=== PATIENT | male | born 1935 | race Caucasian/White ===

== ENCOUNTER 2018-02-25 11:43 | Inpatient (IN) | payer MEDICARE ==
[2018-02-25] MEDS ORDERED: cefTRIAXone\\ROCEPHIN 2 GM in Sodium Chloride 0.9% 100 ML IVPB SCH (18:00)
[2018-02-25] MEDS ORDERED: Milk Of Magnesia 30 ML UDCUP PO PRN (19:12)
[2018-02-25] MEDS: Apixaban 5 MG TAB PO SCH (20:48)
[2018-02-25] MEDS: Carvedilol 3.125 MG TAB PO SCH (20:48)
[2018-02-25] MEDS: Gabapentin 300 MG CAP PO SCH (20:48)
[2018-02-25] MEDS ORDERED: Morphine ER 15 MG TAB PO SCH (22:00)
[2018-02-25] MEDS ORDERED: Sodium Chloride 0.9% 20 ML ONE (23:36)
[2018-02-25] MEDS: Ampicillin 2 GM in Sodium Chloride 0.9% 100 ML IVPB SCH (23:39)
--- NOTE | 2018-02-26 00:26 | HP ---
DATE OF ADMISSION: 02/25/2018 REASON FOR ADMISSION: Six-week IV antibiotics. BRIEF SUMMARY OF HISTORY AND PHYSICAL: Patient is an 82-year-old white male who was recently readmit adria to [facility] on 02/17/2018 after having repeat blood cultures positive fo r Enterococcus. There, he also underwent transesophageal echocardiogram with calcified valves and th ere was a concern for endocarditis. Thus, he is being transferred to swing bed admission to continue a full course of 6 weeks of IV antibiotics to treat his recurrent bacteremia with suspected endocard itis. He will have ampicillin 2 grams IV q.4 hours as well as Rocephin 2 grams IV q.24 hours as well as weekly CBC, CRP, and comprehensive metabolic panel as recommended by Infectious Disease specialis t, Dr. Alexx Gee. PAST MEDICAL HISTORY: History of proved previous neuropathy and chronic pain on long-term morphine, history of kidney failure from previous renal stone, history of coronary artery disease with MA, hist ory of hyperlipidemia, history of hypertension, history of sleep apnea in the past but apparently has not been on CPAP device in the recent past. PAST SURGICAL HISTORY: Includes cardiac stent placement, bilateral knee surgery, bilateral shoulder surgery, and left leg surgery. MEDICATIONS: Please see recent history and physical and discharge summary from his acute hospital [facility]. SOCIAL HISTORY: Patient denies significant alcohol, smoking, or social drug use. His passed aw ay within the last 12 months. He lives alone. He has a granddaughter who helps care for him, but ap parently he has had some overall decline in status per granddaughter. Otherwise, he has been indepen dent in all activities of daily living. FAMILY HISTORY: Both mother and father with history of heart disease. ALLERGIES: No known drug allergies. REVIEW OF SYSTEMS: Presently, patient reports appetite is good. No recent fevers or chills since hi s last admission. No nausea, vomiting, or diarrhea. Appetite has been good. Bowel movements have b een normal. No sore throat. Patient denies chest pain or shortness of breath. No dysuria, hematuri a, or change in urinary frequency. No new rashes or lesions reported. He does have chronic pain, wh ich is at its baseline. Patient denies depression. PHYSICAL EXAMINATION: VITAL SIGNS: Blood pressure 162/88, respiratory rate 16, pulse was 92. Patient is afebrile. HEENT: Atraumatic, normocephalic. Extraocular movements are intact. Pupils equal, round, react to light and accommodation. GENERAL: White male lying in bed, talkative in no distress. CHEST: Clear to auscultation bilaterally. HEART: Regular rate and rhythm with grade 2/6 systolic ejection murmur. ABDOMEN: Obese, soft, nontender, nondistended, no masses palpated. EXTREMITIES: No cyanosis, clubbing, or edema. LABORATORY AND X-RAY FINDINGS: No admission labs at this time. ASSESSMENT AND PLAN: 1. Bacteremia Enterococcus suspected endocarditis per Infectious Disease, patient will have to have 6 weeks of IV antibiotics. He is currently about starting his second week. He will continue ampicil matheus 2 grams IV q.4 hours as well as Rocephin 2 grams IV q.24 hours. I have a weekly CBC, comprehensi ve metabolic panel, and CRP, which will be sent to Dr. Gee for his evaluation. 2. Debilitation and weakness. Physical therapy will be consulted. He has been mostly bedbound for several weeks. We will use [employer] hose mechanical SCDs for deep venous thrombosis prophylaxis. 3. Chronic pain. Patient will be placed on his routine home pain medications. DISPOSITION: After 6 weeks of IV antibiotics, plan is for patient to be discharged to home. May con sports medicine physician home health if he continues to be weak.
[2018-02-26] MEDS: Ampicillin 2 GM VIAL IVPB SCH ×2 (00:33→00:54)
[2018-02-26] MEDS: Ampicillin 2 GM in Sodium Chloride 0.9% 100 ML IVPB SCH ×6 (00:36→20:24)
[2018-02-26 05:22] LABS: Calc. Creatinine Clearance 120 mL/min (70-130); Estimated GFR-MDRD Greater than 90
[2018-02-26 05:53] LABS: Hemoglobin 10.1 g/dL (14.0-18.0); Platelet Count 72 thou/uL (130-400)
[2018-02-26] MEDS: Tamsulosin HCl 0.4 MG CAP PO SCH (08:48)
[2018-02-26] MEDS: Gabapentin 300 MG CAP PO SCH ×3 (08:48→20:28)
[2018-02-26] MEDS: Apixaban 5 MG TAB PO SCH ×2 (08:50→20:28)
[2018-02-26] MEDS: Carvedilol 3.125 MG TAB PO SCH ×2 (08:50→20:28)
[2018-02-26] MEDS: Folic Acid 1 MG TAB PO SCH (08:50)
[2018-02-26] MEDS: Morphine ER 15 MG TAB PO SCH ×2 (08:59→20:50)
[2018-02-26] MEDS ORDERED: Morphine ER 15 MG TAB PO SCH (09:00)
[2018-02-26] MEDS: cefTRIAXone\\ROCEPHIN 2 GM VIAL IVPB SCH ×2 (09:01→21:10)
[2018-02-26] MEDS: CARISOPRODOL 350 MG PO PRN (20:49)
[2018-02-26] MEDS: SULFASALAZINE 500MG PO SCH (20:49)
[2018-02-27] MEDS: Ampicillin 2 GM in Sodium Chloride 0.9% 100 ML IVPB SCH ×6 (00:19→20:36)
[2018-02-27] MEDS: Floranex Packet PO SCH (08:35)
[2018-02-27] MEDS: Carvedilol 3.125 MG TAB PO SCH ×2 (08:37→20:36)
[2018-02-27] MEDS: Apixaban 5 MG TAB PO SCH ×2 (08:37→20:36)
[2018-02-27] MEDS: Folic Acid 1 MG TAB PO SCH (08:38)
[2018-02-27] MEDS: cefTRIAXone\\ROCEPHIN 2 GM VIAL IVPB SCH (08:38)
[2018-02-27] MEDS: Gabapentin 300 MG CAP PO SCH ×3 (08:39→20:36)
[2018-02-27] MEDS: Tamsulosin HCl 0.4 MG CAP PO SCH (08:41)
[2018-02-27] MEDS: SULFASALAZINE 500MG PO SCH ×3 (08:42→21:21)
[2018-02-27] MEDS: CARISOPRODOL 350 MG PO PRN ×3 (08:45→21:21)
[2018-02-27] MEDS: Morphine ER 15 MG TAB PO SCH (08:47)
[2018-02-27] MEDS: cefTRIAXone\\ROCEPHIN 2 GM in Sodium Chloride 0.9% 100 ML IVPB SCH (21:20)
[2018-02-27] MEDS: MORPHINE 30 MG PO SCH (21:21)
[2018-02-28] MEDS: Ampicillin 2 GM in Sodium Chloride 0.9% 100 ML IVPB SCH ×6 (00:35→21:23)
[2018-02-28] MEDS: Floranex Packet PO SCH (09:24)
[2018-02-28] MEDS: Tamsulosin HCl 0.4 MG CAP PO SCH (09:29)
[2018-02-28] MEDS: Folic Acid 1 MG TAB PO SCH (09:33)
[2018-02-28] MEDS: cefTRIAXone\\ROCEPHIN 2 GM in Sodium Chloride 0.9% 100 ML IVPB SCH ×2 (09:33→22:04)
[2018-02-28] MEDS: Carvedilol 3.125 MG TAB PO SCH ×2 (09:33→21:19)
[2018-02-28] MEDS: Gabapentin 300 MG CAP PO SCH ×3 (09:33→21:19)
[2018-02-28] MEDS: Apixaban 5 MG TAB PO SCH ×2 (09:33→21:19)
[2018-02-28] MEDS: MORPHINE 30 MG PO SCH ×2 (09:35→21:20)
[2018-02-28] MEDS: SULFASALAZINE 500MG PO SCH ×2 (09:37→21:21)
[2018-02-28] MEDS: CARISOPRODOL 350 MG PO PRN ×2 (09:39→21:20)
[2018-02-28] MEDS: Ketoconazole 2% Cream 15 gm Tube TOP PRN (17:07)
[2018-02-28] MEDS ORDERED: Calcium Carbonate 500 MG ChewTAB PO PRN (18:57)
[2018-03-01] MEDS: Ampicillin 2 GM in Sodium Chloride 0.9% 100 ML IVPB SCH ×6 (00:54→22:21)
[2018-03-01 07:00] LABS: ALT (SGPT) 14 U/L (8-55); AST (SGOT) 24 U/L (5-34); Albumin 2.5 g/dL (3.4-4.8); Alkaline Phosphatase 89 U/L (40-150); Anion Gap 10 mmol/L (10-20); BUN (Urea Nitrogen) 11 mg/dL (8.4-25.7); Bilirubin, Total Less than 0.2 mg/dL (0.2-1.2); Calc. Creatinine Clearance 108 mL/min (70-130); Calcium 8.6 mg/dL (7.8-10.44); Carbon Dioxide 28 mmol/L (23-31); Chloride 102 mmol/L (98-107); Estimated GFR-MDRD 80; Globulin 2.8 g/dL (2.4-3.5); Glucose 95 mg/dL (83-110); Potassium 4.6 mmol/L (3.5-5.1); Protein, Total 5.3 g/dL (5.8-8.1); Sodium 135 mmol/L (136-145)
[2018-03-01] MEDS ORDERED: Furosemide 40 MG/4 ML VIAL SLOW IVP SCH (07:00)
[2018-03-01] MEDS: cefTRIAXone\\ROCEPHIN 2 GM in Sodium Chloride 0.9% 100 ML IVPB SCH ×2 (08:39→23:13)
[2018-03-01] MEDS: Floranex Packet PO SCH (08:47)
[2018-03-01] MEDS: Tamsulosin HCl 0.4 MG CAP PO SCH (08:49)
[2018-03-01] MEDS: Apixaban 5 MG TAB PO SCH ×2 (08:49→22:22)
[2018-03-01] MEDS: Folic Acid 1 MG TAB PO SCH (08:51)
[2018-03-01] MEDS: Gabapentin 300 MG CAP PO SCH ×3 (08:51→22:22)
[2018-03-01] MEDS: Carvedilol 3.125 MG TAB PO SCH ×2 (08:51→22:23)
[2018-03-01] MEDS: SULFASALAZINE 500MG PO SCH ×2 (08:59→22:23)
[2018-03-01] MEDS: MORPHINE 30 MG PO SCH ×2 (09:03→22:23)
[2018-03-01] MEDS: CARISOPRODOL 350 MG PO PRN ×2 (09:04→22:23)
[2018-03-02] MEDS: Ampicillin 2 GM in Sodium Chloride 0.9% 100 ML IVPB SCH ×6 (01:12→21:01)
[2018-03-02 05:11] LABS: Anion Gap 10 mmol/L (10-20); BUN (Urea Nitrogen) 12 mg/dL (8.4-25.7); Calc. Creatinine Clearance 120 mL/min (70-130); Calcium 8.2 mg/dL (7.8-10.44); Carbon Dioxide 28 mmol/L (23-31); Chloride 103 mmol/L (98-107); Estimated GFR-MDRD 86; Glucose 96 mg/dL (83-110); Potassium 3.9 mmol/L (3.5-5.1); Sodium 137 mmol/L (136-145)
[2018-03-02] MEDS: Ketoconazole 2% Cream 15 gm Tube TOP PRN (05:52)
[2018-03-02] MEDS ORDERED: Furosemide 40 MG/4 ML VIAL SLOW IVP SCH (07:00)
[2018-03-02] MEDS: Folic Acid 1 MG TAB PO SCH (09:35)
[2018-03-02] MEDS: Apixaban 5 MG TAB PO SCH ×2 (09:36→21:08)
[2018-03-02] MEDS: Tamsulosin HCl 0.4 MG CAP PO SCH (09:36)
[2018-03-02] MEDS: Gabapentin 300 MG CAP PO SCH ×3 (09:36→21:08)
[2018-03-02] MEDS: Carvedilol 3.125 MG TAB PO SCH ×2 (09:36→21:08)
[2018-03-02] MEDS: Floranex Packet PO SCH (09:37)
[2018-03-02] MEDS: SULFASALAZINE 500MG PO SCH ×2 (09:38→21:22)
[2018-03-02] MEDS: MORPHINE 30 MG PO SCH ×2 (09:51→21:21)
[2018-03-02] MEDS: cefTRIAXone\\ROCEPHIN 2 GM in Sodium Chloride 0.9% 100 ML IVPB SCH ×2 (09:54→21:42)
[2018-03-02] MEDS: CARISOPRODOL 350 MG PO PRN (21:25)
[2018-03-03] MEDS: Ampicillin 2 GM in Sodium Chloride 0.9% 100 ML IVPB SCH ×6 (00:50→20:11)
[2018-03-03 05:37] LABS: Hemoglobin 9.7 g/dL (14.0-18.0); Mean Corpuscular HGB CONC 31.8 g/dL (32.0-36.0); Mean Corpuscular Hemoglobin 31.8 pg (27.0-31.0); Mean Corpuscular Volume 99.7 fL (78.0-98.0); Platelet Count 86 thou/uL (130-400); RBC Distribution Width 14.5 % (11.5-14.5); Red Blood Cell (RBC) Count 3.04 mill/uL (4.70-6.10); White Blood Cell (WBC) Count 3.2 thou/uL (4.8-10.8)
[2018-03-03 05:45] LABS: ALT (SGPT) 11 U/L (8-55); AST (SGOT) 21 U/L (5-34); Albumin 2.4 g/dL (3.4-4.8); Alkaline Phosphatase 83 U/L (40-150); Anion Gap 10 mmol/L (10-20); BUN (Urea Nitrogen) 10 mg/dL (8.4-25.7); Bilirubin, Total 0.4 mg/dL (0.2-1.2); Calc. Creatinine Clearance 122 mL/min (70-130); Calcium 8.4 mg/dL (7.8-10.44); Carbon Dioxide 29 mmol/L (23-31); Chloride 102 mmol/L (98-107); Estimated GFR-MDRD 89; Globulin 2.8 g/dL (2.4-3.5); Glucose 87 mg/dL (83-110); Potassium 3.9 mmol/L (3.5-5.1); Protein, Total 5.2 g/dL (5.8-8.1); Sodium 137 mmol/L (136-145)
[2018-03-03 05:58] LABS: Anisocytosis SLIGHT = 6-15 cells (100X) (0-5/hpf); Eosinophils 6 % (0-10); Lymphocytes 58 % (21-51); MDiff Complete? YES; Neutrophil 32 % (42-75); PLT Morphology Comment Appears Decreased; Reactive Lymphocytes 3 % (0-10)
[2018-03-03] MEDS ORDERED: Furosemide 40 MG/4 ML VIAL SLOW IVP SCH (07:00)
[2018-03-03] MEDS ORDERED: Potassium Chloride 20 MEQ TAB PO SCH (07:00)
[2018-03-03] MEDS: Tamsulosin HCl 0.4 MG CAP PO SCH (09:20)
[2018-03-03] MEDS: Carvedilol 3.125 MG TAB PO SCH ×2 (09:20→20:22)
[2018-03-03] MEDS: Gabapentin 300 MG CAP PO SCH ×3 (09:20→20:22)
[2018-03-03] MEDS: Apixaban 5 MG TAB PO SCH ×2 (09:20→20:22)
[2018-03-03] MEDS: Folic Acid 1 MG TAB PO SCH (09:21)
[2018-03-03] MEDS: SULFASALAZINE 500MG PO SCH ×2 (09:21→20:28)
[2018-03-03] MEDS: Floranex Packet PO SCH (09:22)
[2018-03-03] MEDS: MORPHINE 30 MG PO SCH ×2 (09:22→20:26)
[2018-03-03] MEDS: Ketoconazole 2% Cream 15 gm Tube TOP PRN (09:31)
[2018-03-03] MEDS: cefTRIAXone\\ROCEPHIN 2 GM in Sodium Chloride 0.9% 100 ML IVPB SCH ×2 (10:33→20:26)
[2018-03-04] MEDS: Ampicillin 2 GM in Sodium Chloride 0.9% 100 ML IVPB SCH ×6 (01:02→21:13)
[2018-03-04] MEDS: Gabapentin 300 MG CAP PO SCH ×3 (09:06→20:25)
[2018-03-04] MEDS: Tamsulosin HCl 0.4 MG CAP PO SCH (09:06)
[2018-03-04] MEDS: Carvedilol 3.125 MG TAB PO SCH ×2 (09:07→20:24)
[2018-03-04] MEDS: Folic Acid 1 MG TAB PO SCH (09:07)
[2018-03-04] MEDS: Apixaban 5 MG TAB PO SCH ×2 (09:07→20:24)
[2018-03-04] MEDS: Floranex Packet PO SCH (09:08)
[2018-03-04] MEDS: cefTRIAXone\\ROCEPHIN 2 GM in Sodium Chloride 0.9% 100 ML IVPB SCH ×2 (09:09→21:55)
[2018-03-04] MEDS: SULFASALAZINE 500MG PO SCH ×2 (09:11→20:25)
[2018-03-04] MEDS: CARISOPRODOL 350 MG PO PRN ×2 (09:15→21:55)
[2018-03-04] MEDS: MORPHINE 30 MG PO SCH ×2 (09:15→20:26)
[2018-03-04] MEDS: Ketoconazole 2% Cream 15 gm Tube TOP PRN ×2 (09:17→20:24)
[2018-03-05] MEDS: Ampicillin 2 GM in Sodium Chloride 0.9% 100 ML IVPB SCH ×6 (01:41→21:10)
[2018-03-05] MEDS: Floranex Packet PO SCH (08:58)
[2018-03-05] MEDS: Apixaban 5 MG TAB PO SCH ×2 (08:59→21:11)
[2018-03-05] MEDS: Carvedilol 3.125 MG TAB PO SCH ×2 (08:59→21:11)
[2018-03-05] MEDS: Gabapentin 300 MG CAP PO SCH ×3 (08:59→21:11)
[2018-03-05] MEDS: Folic Acid 1 MG TAB PO SCH (08:59)
[2018-03-05] MEDS: Tamsulosin HCl 0.4 MG CAP PO SCH (08:59)
[2018-03-05] MEDS ORDERED: cefTRIAXone\\ROCEPHIN 1 GM VIAL SLOW IVP SCH (09:00)
[2018-03-05] MEDS ORDERED: cefTRIAXone\\ROCEPHIN 2 GM in Sodium Chloride 0.9% 100 ML IVPB SCH (09:00)
[2018-03-05] MEDS: CARISOPRODOL 350 MG PO PRN (09:29)
[2018-03-05] MEDS: MORPHINE 30 MG PO SCH ×2 (09:32→21:18)
[2018-03-05] MEDS: Torsemide 20 MG TAB PO SCH ×2 (09:47→15:05)
[2018-03-05] MEDS: cefTRIAXone\\ROCEPHIN 1 GM VIAL SLOW IVP SCH ×2 (09:49→21:52)
[2018-03-05] MEDS: SULFASALAZINE 500MG PO SCH ×2 (09:53→21:12)
[2018-03-06] MEDS: Ampicillin 2 GM in Sodium Chloride 0.9% 100 ML IVPB SCH ×7 (00:46→21:28)
[2018-03-06] MEDS: Floranex Packet PO SCH (08:59)
[2018-03-06] MEDS: cefTRIAXone\\ROCEPHIN 1 GM VIAL SLOW IVP SCH ×2 (09:00→22:23)
[2018-03-06] MEDS: SULFASALAZINE 500MG PO SCH ×2 (09:02→21:26)
[2018-03-06] MEDS: Gabapentin 300 MG CAP PO SCH ×3 (09:03→21:32)
[2018-03-06] MEDS: Folic Acid 1 MG TAB PO SCH (09:03)
[2018-03-06] MEDS: Torsemide 20 MG TAB PO SCH ×2 (09:03→13:42)
[2018-03-06] MEDS: Apixaban 5 MG TAB PO SCH ×2 (09:04→21:32)
[2018-03-06] MEDS: Tamsulosin HCl 0.4 MG CAP PO SCH (09:04)
[2018-03-06] MEDS: Carvedilol 3.125 MG TAB PO SCH ×2 (09:04→21:32)
[2018-03-06] MEDS: MORPHINE 30 MG PO SCH ×2 (09:30→21:27)
[2018-03-06] MEDS: Calcium Carbonate 500 MG ChewTAB PO PRN (13:41)
[2018-03-06] MEDS: Fluconazole 100 MG TAB PO SCH (18:03)
[2018-03-06] MEDS: Nystatin Powder 15 GM BOT TOP SCH (21:25)
[2018-03-07] MEDS: Ampicillin 2 GM in Sodium Chloride 0.9% 100 ML IVPB SCH ×5 (05:40→20:37)
[2018-03-07] MEDS: Floranex Packet PO SCH (09:37)
[2018-03-07] MEDS: Carvedilol 3.125 MG TAB PO SCH ×2 (09:40→20:38)
[2018-03-07] MEDS: Apixaban 5 MG TAB PO SCH ×2 (09:40→20:38)
[2018-03-07] MEDS: Folic Acid 1 MG TAB PO SCH (09:41)
[2018-03-07] MEDS: Tamsulosin HCl 0.4 MG CAP PO SCH (09:41)
[2018-03-07] MEDS: Gabapentin 300 MG CAP PO SCH ×3 (09:41→20:35)
[2018-03-07] MEDS: Nystatin Powder 15 GM BOT TOP SCH ×2 (09:42→20:41)
[2018-03-07] MEDS: MORPHINE 30 MG PO SCH (09:43)
[2018-03-07] MEDS: SULFASALAZINE 500MG PO SCH (09:45)
[2018-03-07] MEDS: Torsemide 20 MG TAB PO SCH ×2 (09:51→14:32)
[2018-03-07] MEDS ORDERED: Sterile Water 20 ML ONE ×2 (10:01→21:07)
[2018-03-07] MEDS: CARISOPRODOL 350 MG PO PRN (10:06)
[2018-03-07] MEDS: cefTRIAXone\\ROCEPHIN 1 GM VIAL SLOW IVP SCH ×2 (10:08→21:24)
[2018-03-07] MEDS: Fluconazole 100 MG TAB PO SCH (17:23)
[2018-03-07] MEDS: sulfaSALAzine 500 MG TAB PO SCH (20:35)
[2018-03-07] MEDS: Morphine ER 15 MG TAB PO SCH (20:38)
[2018-03-08] MEDS: Ampicillin 2 GM in Sodium Chloride 0.9% 100 ML IVPB SCH ×6 (01:15→20:14)
[2018-03-08] MEDS ORDERED: EPINEPHrine 1 MG/10 ML Abboject SYRINGE ONE (01:47)
[2018-03-08 04:40] LABS: Hemoglobin 10.2 g/dL (14.0-18.0); Platelet Count 106 thou/uL (130-400)
[2018-03-08 04:56] LABS: ALT (SGPT) Less than 7 U/L (8-55); AST (SGOT) 16 U/L (5-34); Albumin 2.6 g/dL (3.4-4.8); Alkaline Phosphatase 84 U/L (40-150); Anion Gap 13 mmol/L (10-20); BUN (Urea Nitrogen) 10 mg/dL (8.4-25.7); Bilirubin, Total 0.4 mg/dL (0.2-1.2); Calc. Creatinine Clearance 100 mL/min (70-130); Calcium 8.4 mg/dL (7.8-10.44); Carbon Dioxide 31 mmol/L (23-31); Chloride 98 mmol/L (98-107); Estimated GFR-MDRD 74; Glucose 91 mg/dL (83-110); Potassium 3.7 mmol/L (3.5-5.1); Protein, Total 5.6 g/dL (5.8-8.1); Sodium 138 mmol/L (136-145)
[2018-03-08] MEDS: Morphine ER 15 MG TAB PO SCH ×2 (08:23→20:22)
[2018-03-08] MEDS: Floranex Packet PO SCH (08:24)
[2018-03-08] MEDS: Folic Acid 1 MG TAB PO SCH (08:25)
[2018-03-08] MEDS: sulfaSALAzine 500 MG TAB PO SCH ×2 (08:25→20:21)
[2018-03-08] MEDS: Gabapentin 300 MG CAP PO SCH ×3 (08:26→20:22)
[2018-03-08] MEDS: Tamsulosin HCl 0.4 MG CAP PO SCH (08:29)
[2018-03-08] MEDS: Carvedilol 3.125 MG TAB PO SCH ×2 (08:30→20:23)
[2018-03-08] MEDS: Potassium Chloride 20 MEQ TAB PO SCH (08:30)
[2018-03-08] MEDS: Apixaban 5 MG TAB PO SCH ×2 (08:32→20:23)
[2018-03-08] MEDS: Torsemide 20 MG TAB PO SCH ×2 (08:39→14:01)
[2018-03-08] MEDS: Nystatin Powder 15 GM BOT TOP SCH ×2 (08:46→20:26)
[2018-03-08] MEDS: cefTRIAXone\\ROCEPHIN 1 GM VIAL SLOW IVP SCH ×2 (09:38→21:00)
[2018-03-08] MEDS: Fluconazole 100 MG TAB PO SCH (17:11)
[2018-03-08] MEDS ORDERED: Sterile Water 20 ML ONE (20:31)
[2018-03-09] MEDS: Ampicillin 2 GM in Sodium Chloride 0.9% 100 ML IVPB SCH ×6 (00:27→20:22)
[2018-03-09] MEDS: Floranex Packet PO SCH (08:24)
[2018-03-09] MEDS: Morphine ER 15 MG TAB PO SCH ×2 (08:26→20:20)
[2018-03-09] MEDS: Carvedilol 3.125 MG TAB PO SCH ×2 (08:27→20:22)
[2018-03-09] MEDS: sulfaSALAzine 500 MG TAB PO SCH ×2 (08:27→20:21)
[2018-03-09] MEDS: Tamsulosin HCl 0.4 MG CAP PO SCH (08:27)
[2018-03-09] MEDS: Gabapentin 300 MG CAP PO SCH ×3 (08:28→20:22)
[2018-03-09] MEDS: Folic Acid 1 MG TAB PO SCH (08:28)
[2018-03-09] MEDS: Potassium Chloride 20 MEQ TAB PO SCH (08:28)
[2018-03-09] MEDS: Apixaban 5 MG TAB PO SCH ×2 (08:29→20:22)
[2018-03-09] MEDS: Torsemide 20 MG TAB PO SCH ×2 (08:37→14:44)
[2018-03-09] MEDS: Nystatin Powder 15 GM BOT TOP SCH ×2 (08:55→20:20)
[2018-03-09] MEDS: cefTRIAXone\\ROCEPHIN 1 GM VIAL SLOW IVP SCH ×2 (10:20→21:19)
[2018-03-09] MEDS: Fluconazole 100 MG TAB PO SCH (17:26)
[2018-03-10] MEDS: Ampicillin 2 GM in Sodium Chloride 0.9% 100 ML IVPB SCH ×6 (01:10→21:45)
[2018-03-10 05:06] LABS: Hemoglobin 9.3 g/dL (14.0-18.0); Platelet Count 85 thou/uL (130-400)
[2018-03-10] MEDS: Potassium Chloride 20 MEQ TAB PO SCH (08:47)
[2018-03-10] MEDS: Morphine ER 15 MG TAB PO SCH ×2 (08:48→21:45)
[2018-03-10] MEDS: sulfaSALAzine 500 MG TAB PO SCH ×2 (08:48→21:46)
[2018-03-10] MEDS: Floranex Packet PO SCH (08:48)
[2018-03-10] MEDS: Folic Acid 1 MG TAB PO SCH (08:48)
[2018-03-10] MEDS: Tamsulosin HCl 0.4 MG CAP PO SCH (08:48)
[2018-03-10] MEDS: Torsemide 20 MG TAB PO SCH ×2 (08:50→13:56)
[2018-03-10] MEDS: Carvedilol 3.125 MG TAB PO SCH ×2 (08:50→21:47)
[2018-03-10] MEDS: Gabapentin 300 MG CAP PO SCH ×3 (08:51→21:46)
[2018-03-10] MEDS: Apixaban 5 MG TAB PO SCH ×2 (08:51→21:46)
[2018-03-10] MEDS: Nystatin Powder 15 GM BOT TOP SCH ×2 (08:56→21:50)
[2018-03-10] MEDS ORDERED: Sterile Water 20 ML ONE (10:04)
[2018-03-10] MEDS: cefTRIAXone\\ROCEPHIN 1 GM VIAL SLOW IVP SCH ×2 (10:49→22:54)
[2018-03-10] MEDS: Senokot 8.6 MG TAB PO PRN (10:58)
[2018-03-10] MEDS: Acetaminophen 325 MG TAB PO PRN (13:57)
[2018-03-10] MEDS: Fluconazole 100 MG TAB PO SCH (17:00)
[2018-03-10] MEDS: Sodium Chloride 0.9% 20 ML ONE (22:53)
[2018-03-11] MEDS: Ampicillin 2 GM in Sodium Chloride 0.9% 100 ML IVPB SCH ×6 (01:26→21:19)
[2018-03-11] MEDS ORDERED: Sterile Water 20 ML ONE (08:22)
[2018-03-11] MEDS: Floranex Packet PO SCH (08:58)
[2018-03-11] MEDS: Potassium Chloride 20 MEQ TAB PO SCH (08:58)
[2018-03-11] MEDS: Morphine ER 15 MG TAB PO SCH ×2 (09:00→21:20)
[2018-03-11] MEDS: sulfaSALAzine 500 MG TAB PO SCH ×2 (09:00→21:19)
[2018-03-11] MEDS: Tamsulosin HCl 0.4 MG CAP PO SCH (09:00)
[2018-03-11] MEDS: Folic Acid 1 MG TAB PO SCH (09:02)
[2018-03-11] MEDS: Torsemide 20 MG TAB PO SCH ×2 (09:02→13:30)
[2018-03-11] MEDS: Gabapentin 300 MG CAP PO SCH ×3 (09:02→21:19)
[2018-03-11] MEDS: Carvedilol 3.125 MG TAB PO SCH ×2 (09:02→21:20)
[2018-03-11] MEDS: Apixaban 5 MG TAB PO SCH ×2 (09:02→21:19)
[2018-03-11] MEDS: Nystatin Powder 15 GM BOT TOP SCH ×2 (09:03→21:29)
[2018-03-11] MEDS: cefTRIAXone\\ROCEPHIN 1 GM VIAL SLOW IVP SCH ×2 (09:12→22:16)
[2018-03-11 12:17] LABS: ALT (SGPT) Less than 7 U/L (8-55); AST (SGOT) 16 U/L (5-34); Albumin 2.4 g/dL (3.4-4.8); Alkaline Phosphatase 65 U/L (40-150); Anion Gap 13 mmol/L (10-20); BUN (Urea Nitrogen) 12 mg/dL (8.4-25.7); Bilirubin, Total Less than 0.2 mg/dL (0.2-1.2); Calc. Creatinine Clearance 107 mL/min (70-130); Calcium 8.1 mg/dL (7.8-10.44); Carbon Dioxide 30 mmol/L (23-31); Chloride 98 mmol/L (98-107); Estimated GFR-MDRD 80; Globulin 2.7 g/dL (2.4-3.5); Glucose 86 mg/dL (83-110); Potassium 3.9 mmol/L (3.5-5.1); Protein, Total 5.1 g/dL (5.8-8.1); Sodium 137 mmol/L (136-145)
[2018-03-11 13:09] LABS: Eosinophils 6 % (0-10); Hemoglobin 9.2 g/dL (14.0-18.0); Lymphocytes 65 % (21-51); MDiff Complete? YES; Mean Corpuscular HGB CONC 32.4 g/dL (32.0-36.0); Mean Corpuscular Hemoglobin 32.3 pg (27.0-31.0); Mean Corpuscular Volume 99.8 fL (78.0-98.0); Monocytes 10 % (0-10); Neutrophil 19 % (42-75); PLT Morphology Comment slide confirms low platelet count; Platelet Count 87 thou/uL (130-400); RBC Distribution Width 14.2 % (11.5-14.5); Red Blood Cell (RBC) Count 2.85 mill/uL (4.70-6.10); White Blood Cell (WBC) Count 2.5 thou/uL (4.8-10.8)
[2018-03-11] MEDS: Fluconazole 100 MG TAB PO SCH (16:51)
[2018-03-11 17:35] LABS: CRP (Inflammatory) 0.54 mg/dL (= or < 0.5)
[2018-03-11] MEDS ORDERED: Sodium Chloride 0.9% 30 ML ONE (22:11)
[2018-03-11] MEDS: Sodium Chloride 0.9% 20 ML ONE (22:18)
[2018-03-12] MEDS: Ampicillin 2 GM in Sodium Chloride 0.9% 100 ML IVPB SCH ×6 (00:50→21:41)
[2018-03-12] MEDS: Morphine ER 15 MG TAB PO SCH ×2 (09:22→21:43)
[2018-03-12] MEDS: sulfaSALAzine 500 MG TAB PO SCH ×2 (09:22→21:42)
[2018-03-12] MEDS: Floranex Packet PO SCH (09:23)
[2018-03-12] MEDS: Gabapentin 300 MG CAP PO SCH ×3 (09:25→21:42)
[2018-03-12] MEDS: Folic Acid 1 MG TAB PO SCH (09:25)
[2018-03-12] MEDS: Torsemide 20 MG TAB PO SCH ×2 (09:25→14:39)
[2018-03-12] MEDS: Carvedilol 3.125 MG TAB PO SCH ×2 (09:25→21:43)
[2018-03-12] MEDS: Apixaban 5 MG TAB PO SCH ×2 (09:25→21:42)
[2018-03-12] MEDS: Tamsulosin HCl 0.4 MG CAP PO SCH (09:25)
[2018-03-12] MEDS: Potassium Chloride 20 MEQ TAB PO SCH (09:25)
[2018-03-12] MEDS: Nystatin Powder 15 GM BOT TOP SCH ×2 (09:26→21:42)
[2018-03-12] MEDS: cefTRIAXone\\ROCEPHIN 1 GM VIAL SLOW IVP SCH ×2 (09:26→22:25)
[2018-03-12] MEDS: Fluconazole 100 MG TAB PO SCH (17:42)
[2018-03-12] MEDS ORDERED: Sodium Chloride 0.9% 20 ML ONE (21:23)
[2018-03-13] MEDS: Ampicillin 2 GM in Sodium Chloride 0.9% 100 ML IVPB SCH ×5 (01:18→16:56)
[2018-03-13] MEDS: Potassium Chloride 20 MEQ TAB PO SCH (08:50)
[2018-03-13] MEDS: Morphine ER 15 MG TAB PO SCH ×2 (08:51→22:26)
[2018-03-13] MEDS: sulfaSALAzine 500 MG TAB PO SCH ×2 (08:52→22:26)
[2018-03-13] MEDS: Floranex Packet PO SCH ×2 (08:53→13:39)
[2018-03-13] MEDS: Apixaban 5 MG TAB PO SCH ×2 (08:54→22:27)
[2018-03-13] MEDS: Carvedilol 3.125 MG TAB PO SCH ×2 (08:54→22:26)
[2018-03-13] MEDS: Tamsulosin HCl 0.4 MG CAP PO SCH (08:54)
[2018-03-13] MEDS: Torsemide 20 MG TAB PO SCH ×2 (08:54→14:47)
[2018-03-13] MEDS: Gabapentin 300 MG CAP PO SCH ×3 (08:54→22:26)
[2018-03-13] MEDS: Folic Acid 1 MG TAB PO SCH (08:54)
[2018-03-13] MEDS: cefTRIAXone\\ROCEPHIN 1 GM VIAL SLOW IVP SCH (08:59)
[2018-03-13] MEDS: Nystatin Powder 15 GM BOT TOP SCH ×2 (10:24→22:25)
[2018-03-13] MEDS ORDERED: DAPTOmycin 500 MG VIAL SLOW IVP SCH (18:45)
[2018-03-14 04:56] LABS: Eosinophils 2 % (0-10); Hemoglobin 10.4 g/dL (14.0-18.0); Lymphocytes 59 % (21-51); MDiff Complete? YES; Mean Corpuscular HGB CONC 31.7 g/dL (32.0-36.0); Mean Corpuscular Hemoglobin 31.1 pg (27.0-31.0); Mean Corpuscular Volume 98.1 fL (78.0-98.0); Mean Platelet Volume 10.2 fL (7.4-10.4); Monocytes 13 % (0-10); Neutrophil 24 % (42-75); PLT Morphology Comment Appears Decreased; Platelet Count 120 thou/uL (130-400); RBC Distribution Width 13.6 % (11.5-14.5); RBC Morphology Normal; Red Blood Cell (RBC) Count 3.35 mill/uL (4.70-6.10); White Blood Cell (WBC) Count 4.6 thou/uL (4.8-10.8)
[2018-03-14] MEDS: Floranex Packet PO SCH (08:57)
[2018-03-14] MEDS: Potassium Chloride 20 MEQ TAB PO SCH (09:00)
[2018-03-14] MEDS ORDERED: DAPTOmycin 500 MG in Sodium Chloride 0.9% 100 ML IVPB SCH (09:00)
[2018-03-14] MEDS: Morphine ER 15 MG TAB PO SCH ×2 (09:00→20:39)
[2018-03-14] MEDS: Gabapentin 300 MG CAP PO SCH ×3 (09:00→20:39)
[2018-03-14] MEDS: Tamsulosin HCl 0.4 MG CAP PO SCH (09:00)
[2018-03-14] MEDS: sulfaSALAzine 500 MG TAB PO SCH ×2 (09:01→20:39)
[2018-03-14] MEDS: Carvedilol 3.125 MG TAB PO SCH ×2 (09:02→20:39)
[2018-03-14] MEDS: Apixaban 5 MG TAB PO SCH ×2 (09:02→20:39)
[2018-03-14] MEDS: Folic Acid 1 MG TAB PO SCH (09:03)
[2018-03-14] MEDS: Nystatin Powder 15 GM BOT TOP SCH ×2 (09:05→20:49)
[2018-03-14] MEDS ORDERED: Sterile Water 20 ML ONE (09:12)
[2018-03-14] MEDS: Torsemide 20 MG TAB PO SCH ×2 (09:14→14:04)
[2018-03-14] MEDS: cefTRIAXone\\ROCEPHIN 1 GM VIAL SLOW IVP SCH (09:15)
[2018-03-14] MEDS: DAPTOmycin 500 MG in Sodium Chloride 0.9% 100 ML IVPB SCH (16:57)
[2018-03-15] MEDS: Calcium Carbonate 500 MG ChewTAB PO PRN (09:03)
[2018-03-15] MEDS: sulfaSALAzine 500 MG TAB PO SCH ×2 (09:37→21:15)
[2018-03-15] MEDS: Gabapentin 300 MG CAP PO SCH ×3 (09:38→21:15)
[2018-03-15] MEDS: Potassium Chloride 20 MEQ TAB PO SCH (09:38)
[2018-03-15] MEDS: Apixaban 5 MG TAB PO SCH ×2 (09:39→21:15)
[2018-03-15] MEDS: Carvedilol 3.125 MG TAB PO SCH ×2 (09:39→21:15)
[2018-03-15] MEDS: Folic Acid 1 MG TAB PO SCH (09:39)
[2018-03-15] MEDS: Morphine ER 15 MG TAB PO SCH ×2 (09:39→21:15)
[2018-03-15] MEDS: Nystatin Powder 15 GM BOT TOP SCH ×2 (09:40→21:15)
[2018-03-15] MEDS: Tamsulosin HCl 0.4 MG CAP PO SCH (09:40)
[2018-03-15] MEDS: Floranex Packet PO SCH (09:41)
[2018-03-15] MEDS: Torsemide 20 MG TAB PO SCH ×2 (09:49→15:00)
[2018-03-15] MEDS: cefTRIAXone\\ROCEPHIN 1 GM VIAL SLOW IVP SCH (09:51)
[2018-03-15] MEDS ORDERED: Sodium Chloride 0.9% 10 ML ONE (16:26)
[2018-03-15] MEDS: DAPTOmycin 500 MG in Sodium Chloride 0.9% 100 ML IVPB SCH (17:40)
[2018-03-16] MEDS ORDERED: Sterile Water 20 ML ONE (08:08)
[2018-03-16] MEDS: Calcium Carbonate 500 MG ChewTAB PO PRN (08:54)
[2018-03-16] MEDS: Floranex Packet PO SCH (08:56)
[2018-03-16] MEDS: Potassium Chloride 20 MEQ TAB PO SCH (08:58)
[2018-03-16] MEDS: Morphine ER 15 MG TAB PO SCH ×2 (08:59→22:31)
[2018-03-16] MEDS: Apixaban 5 MG TAB PO SCH ×2 (09:00→22:35)
[2018-03-16] MEDS: Folic Acid 1 MG TAB PO SCH (09:00)
[2018-03-16] MEDS: sulfaSALAzine 500 MG TAB PO SCH ×2 (09:00→22:32)
[2018-03-16] MEDS: Gabapentin 300 MG CAP PO SCH ×3 (09:00→22:35)
[2018-03-16] MEDS: Carvedilol 3.125 MG TAB PO SCH ×2 (09:00→22:34)
[2018-03-16] MEDS: Tamsulosin HCl 0.4 MG CAP PO SCH (09:01)
[2018-03-16] MEDS: Nystatin Powder 15 GM BOT TOP SCH ×2 (09:03→22:38)
[2018-03-16] MEDS: cefTRIAXone\\ROCEPHIN 1 GM VIAL SLOW IVP SCH (09:03)
[2018-03-16] MEDS: Torsemide 20 MG TAB PO SCH ×2 (09:08→14:04)
[2018-03-16] MEDS: DAPTOmycin 500 MG in Sodium Chloride 0.9% 100 ML IVPB SCH (16:48)
[2018-03-17] MEDS: Floranex Packet PO SCH (08:51)
[2018-03-17] MEDS: Folic Acid 1 MG TAB PO SCH (08:52)
[2018-03-17] MEDS: sulfaSALAzine 500 MG TAB PO SCH ×2 (08:53→20:33)
[2018-03-17] MEDS: Gabapentin 300 MG CAP PO SCH ×3 (08:53→20:33)
[2018-03-17] MEDS: Tamsulosin HCl 0.4 MG CAP PO SCH (08:53)
[2018-03-17] MEDS: Morphine ER 15 MG TAB PO SCH ×2 (08:54→20:33)
[2018-03-17] MEDS: Torsemide 20 MG TAB PO SCH ×2 (08:54→14:32)
[2018-03-17] MEDS: Apixaban 5 MG TAB PO SCH ×2 (08:55→20:32)
[2018-03-17] MEDS: Potassium Chloride 20 MEQ TAB PO SCH (08:55)
[2018-03-17] MEDS: cefTRIAXone\\ROCEPHIN 1 GM VIAL SLOW IVP SCH (08:55)
[2018-03-17] MEDS: Nystatin Powder 15 GM BOT TOP SCH ×2 (08:57→20:35)
[2018-03-17] MEDS: Carvedilol 3.125 MG TAB PO SCH ×2 (09:41→20:32)
[2018-03-17] MEDS: Bisacodyl 5 MG TAB PO PRN (09:44)
[2018-03-17] MEDS: DAPTOmycin 500 MG in Sodium Chloride 0.9% 100 ML IVPB SCH (17:23)
[2018-03-18] MEDS: Floranex Packet PO SCH (11:23)
[2018-03-18] MEDS: Morphine ER 15 MG TAB PO SCH ×2 (11:24→21:59)
[2018-03-18] MEDS: Apixaban 5 MG TAB PO SCH ×2 (11:25→22:01)
[2018-03-18] MEDS: sulfaSALAzine 500 MG TAB PO SCH ×2 (11:25→22:00)
[2018-03-18] MEDS: Potassium Chloride 20 MEQ TAB PO SCH (11:26)
[2018-03-18] MEDS: Gabapentin 300 MG CAP PO SCH ×3 (11:26→22:01)
[2018-03-18] MEDS: Carvedilol 3.125 MG TAB PO SCH ×2 (11:26→22:01)
[2018-03-18] MEDS: Tamsulosin HCl 0.4 MG CAP PO SCH (11:26)
[2018-03-18] MEDS: Torsemide 20 MG TAB PO SCH ×2 (11:27→14:50)
[2018-03-18] MEDS: Folic Acid 1 MG TAB PO SCH (11:27)
[2018-03-18] MEDS: Nystatin Powder 15 GM BOT TOP SCH ×2 (11:28→22:02)
[2018-03-18] MEDS: cefTRIAXone\\ROCEPHIN 1 GM VIAL SLOW IVP SCH (11:29)
[2018-03-18 11:31] LABS: ALT (SGPT) 9 U/L (8-55); AST (SGOT) 23 U/L (5-34); Albumin 2.8 g/dL (3.4-4.8); Alkaline Phosphatase 85 U/L (40-150); Anion Gap 11 mmol/L (10-20); BUN (Urea Nitrogen) 20 mg/dL (8.4-25.7); Bilirubin, Total 0.3 mg/dL (0.2-1.2); Calc. Creatinine Clearance 90 mL/min (70-130); Calcium 9.1 mg/dL (7.8-10.44); Carbon Dioxide 29 mmol/L (23-31); Chloride 97 mmol/L (98-107); Estimated GFR-MDRD 69; Globulin 3.4 g/dL (2.4-3.5); Glucose 103 mg/dL (83-110); Potassium 4.2 mmol/L (3.5-5.1); Protein, Total 6.2 g/dL (5.8-8.1); Sodium 133 mmol/L (136-145)
[2018-03-18 11:35] LABS: Hemoglobin 10.6 g/dL (14.0-18.0); Mean Corpuscular HGB CONC 31.8 g/dL (32.0-36.0); Mean Corpuscular Volume 97.6 fL (78.0-98.0); Mean Platelet Volume 10.9 fL (7.4-10.4); Platelet Count 103 thou/uL (130-400); RBC Distribution Width 13.1 % (11.5-14.5); White Blood Cell (WBC) Count 3.9 thou/uL (4.8-10.8)
[2018-03-18] MEDS ORDERED: Morphine ER 15 MG TAB ONE (12:00)
[2018-03-18 12:29] LABS: Eosinophils 3 % (0-10); Lymphocytes 22 % (21-51); MDiff Complete? YES; Monocytes 3 % (0-10); Neutrophil 70 % (42-75); PLT Morphology Comment Appears Decreased; RBC Morphology Normal; Reactive Lymphocytes 2 % (0-10)
[2018-03-18] MEDS: DAPTOmycin 500 MG in Sodium Chloride 0.9% 100 ML IVPB SCH (17:11)
[2018-03-19] MEDS: cefTRIAXone\\ROCEPHIN 1 GM VIAL SLOW IVP SCH (10:20)
[2018-03-19] MEDS: Gabapentin 300 MG CAP PO SCH ×3 (10:21→20:44)
[2018-03-19] MEDS: Floranex Packet PO SCH (10:21)
[2018-03-19] MEDS: Torsemide 20 MG TAB PO SCH ×2 (10:22→17:42)
[2018-03-19] MEDS: Morphine ER 15 MG TAB PO SCH ×2 (10:22→20:42)
[2018-03-19] MEDS: Apixaban 5 MG TAB PO SCH ×2 (10:22→20:44)
[2018-03-19] MEDS: Carvedilol 3.125 MG TAB PO SCH ×2 (10:22→20:44)
[2018-03-19] MEDS: Tamsulosin HCl 0.4 MG CAP PO SCH (10:22)
[2018-03-19] MEDS: sulfaSALAzine 500 MG TAB PO SCH (10:24)
[2018-03-19] MEDS: Potassium Chloride 20 MEQ TAB PO SCH (10:24)
[2018-03-19] MEDS: Folic Acid 1 MG TAB PO SCH (10:25)
[2018-03-19] MEDS: Nystatin Powder 15 GM BOT TOP SCH ×2 (10:27→20:45)
[2018-03-19] MEDS: DAPTOmycin 500 MG in Sodium Chloride 0.9% 100 ML IVPB SCH (17:39)
[2018-03-20] MEDS: sulfaSALAzine 500 MG TAB PO SCH ×3 (01:28→20:29)
[2018-03-20] MEDS: Morphine ER 15 MG TAB PO SCH ×2 (09:48→20:30)
[2018-03-20] MEDS: Floranex Packet PO SCH (09:49)
[2018-03-20] MEDS: Apixaban 5 MG TAB PO SCH ×2 (09:50→20:29)
[2018-03-20] MEDS: Gabapentin 300 MG CAP PO SCH ×3 (09:50→20:28)
[2018-03-20] MEDS: Carvedilol 3.125 MG TAB PO SCH ×2 (09:50→20:29)
[2018-03-20] MEDS: Folic Acid 1 MG TAB PO SCH (09:51)
[2018-03-20] MEDS: Potassium Chloride 20 MEQ TAB PO SCH (09:51)
[2018-03-20] MEDS: Tamsulosin HCl 0.4 MG CAP PO SCH (09:51)
[2018-03-20] MEDS: Torsemide 20 MG TAB PO SCH ×2 (09:52→15:07)
[2018-03-20] MEDS: cefTRIAXone\\ROCEPHIN 1 GM VIAL SLOW IVP SCH (09:53)
[2018-03-20] MEDS: Nystatin Powder 15 GM BOT TOP SCH ×2 (09:54→20:32)
[2018-03-20] MEDS: DAPTOmycin 500 MG in Sodium Chloride 0.9% 100 ML IVPB SCH (17:59)
[2018-03-21] MEDS: Nystatin Powder 15 GM BOT TOP SCH ×2 (08:54→20:30)
[2018-03-21] MEDS: Floranex Packet PO SCH (08:55)
[2018-03-21] MEDS: Potassium Chloride 20 MEQ TAB PO SCH (08:55)
[2018-03-21] MEDS: Apixaban 5 MG TAB PO SCH ×2 (08:55→20:26)
[2018-03-21] MEDS: Morphine ER 15 MG TAB PO SCH ×2 (08:56→20:27)
[2018-03-21] MEDS: Tamsulosin HCl 0.4 MG CAP PO SCH (08:56)
[2018-03-21] MEDS: Carvedilol 3.125 MG TAB PO SCH ×2 (08:56→20:26)
[2018-03-21] MEDS: Folic Acid 1 MG TAB PO SCH (08:56)
[2018-03-21] MEDS: cefTRIAXone\\ROCEPHIN 1 GM VIAL SLOW IVP SCH (08:56)
[2018-03-21] MEDS: sulfaSALAzine 500 MG TAB PO SCH ×2 (08:57→20:26)
[2018-03-21] MEDS: Gabapentin 300 MG CAP PO SCH ×3 (09:05→20:27)
[2018-03-21] MEDS: Torsemide 20 MG TAB PO SCH ×2 (09:15→14:00)
[2018-03-21] MEDS: Senokot 8.6 MG TAB PO PRN (11:09)
[2018-03-21] MEDS: DAPTOmycin 500 MG in Sodium Chloride 0.9% 100 ML IVPB SCH (17:34)
[2018-03-22] MEDS: Morphine ER 15 MG TAB PO SCH ×2 (09:34→22:05)
[2018-03-22] MEDS: Apixaban 5 MG TAB PO SCH ×2 (09:35→22:05)
[2018-03-22] MEDS: Tamsulosin HCl 0.4 MG CAP PO SCH (09:35)
[2018-03-22] MEDS: Carvedilol 3.125 MG TAB PO SCH ×2 (09:36→22:04)
[2018-03-22] MEDS: Folic Acid 1 MG TAB PO SCH (09:36)
[2018-03-22] MEDS: Potassium Chloride 20 MEQ TAB PO SCH (09:36)
[2018-03-22] MEDS: Floranex Packet PO SCH (09:37)
[2018-03-22] MEDS: Gabapentin 300 MG CAP PO SCH ×3 (09:37→22:04)
[2018-03-22] MEDS: sulfaSALAzine 500 MG TAB PO SCH ×2 (09:37→22:03)
[2018-03-22] MEDS: Nystatin Powder 15 GM BOT TOP SCH ×2 (09:38→22:07)
[2018-03-22] MEDS: Torsemide 20 MG TAB PO SCH ×2 (09:46→13:50)
[2018-03-22] MEDS: cefTRIAXone\\ROCEPHIN 1 GM VIAL SLOW IVP SCH (09:46)
[2018-03-22] MEDS: Bisacodyl 5 MG TAB PO PRN (11:41)
[2018-03-22] MEDS ORDERED: Torsemide 20 MG TAB PO SCH (14:00)
[2018-03-22] MEDS: DAPTOmycin 500 MG in Sodium Chloride 0.9% 100 ML IVPB SCH (17:14)
[2018-03-23] MEDS: Calcium Carbonate 500 MG ChewTAB PO PRN (09:05)
[2018-03-23] MEDS: cefTRIAXone\\ROCEPHIN 1 GM VIAL SLOW IVP SCH (09:49)
[2018-03-23] MEDS: Morphine ER 15 MG TAB PO SCH ×2 (10:05→21:06)
[2018-03-23] MEDS: Floranex Packet PO SCH (10:05)
[2018-03-23] MEDS: sulfaSALAzine 500 MG TAB PO SCH ×2 (10:08→21:07)
[2018-03-23] MEDS: Gabapentin 300 MG CAP PO SCH ×3 (10:08→21:05)
[2018-03-23] MEDS: Carvedilol 3.125 MG TAB PO SCH ×2 (10:09→21:06)
[2018-03-23] MEDS: Tamsulosin HCl 0.4 MG CAP PO SCH (10:09)
[2018-03-23] MEDS: Apixaban 5 MG TAB PO SCH ×2 (10:09→21:05)
[2018-03-23] MEDS: Torsemide 20 MG TAB PO SCH ×2 (10:09→15:38)
[2018-03-23] MEDS: Folic Acid 1 MG TAB PO SCH (10:09)
[2018-03-23] MEDS: Nystatin Powder 15 GM BOT TOP SCH ×2 (10:10→21:10)
[2018-03-23] MEDS: Potassium Chloride 20 MEQ TAB PO SCH (10:10)
[2018-03-23] MEDS: DAPTOmycin 500 MG in Sodium Chloride 0.9% 100 ML IVPB SCH (17:27)
[2018-03-24] MEDS: cefTRIAXone\\ROCEPHIN 1 GM VIAL SLOW IVP SCH (09:05)
[2018-03-24] MEDS: Floranex Packet PO SCH (09:06)
[2018-03-24] MEDS: Folic Acid 1 MG TAB PO SCH (09:09)
[2018-03-24] MEDS: Carvedilol 3.125 MG TAB PO SCH ×2 (09:09→20:34)
[2018-03-24] MEDS: Gabapentin 300 MG CAP PO SCH ×3 (09:09→20:34)
[2018-03-24] MEDS: Torsemide 20 MG TAB PO SCH ×2 (09:09→15:43)
[2018-03-24] MEDS: Potassium Chloride 20 MEQ TAB PO SCH (09:10)
[2018-03-24] MEDS: sulfaSALAzine 500 MG TAB PO SCH ×2 (09:10→20:31)
[2018-03-24] MEDS: Tamsulosin HCl 0.4 MG CAP PO SCH (09:10)
[2018-03-24] MEDS: Apixaban 5 MG TAB PO SCH ×2 (09:10→20:34)
[2018-03-24] MEDS: Morphine ER 15 MG TAB PO SCH ×2 (09:11→20:31)
[2018-03-24] MEDS: Nystatin Powder 15 GM BOT TOP SCH ×2 (09:12→20:31)
[2018-03-24] MEDS ORDERED: cefTRIAXone\\ROCEPHIN 2 GM in Sodium Chloride 0.9% 100 ML IVPB SCH (10:00)
[2018-03-24] MEDS: DAPTOmycin 500 MG in Sodium Chloride 0.9% 100 ML IVPB SCH (16:47)
[2018-03-25] MEDS: Senokot 8.6 MG TAB PO PRN (09:10)
[2018-03-25] MEDS: cefTRIAXone\\ROCEPHIN 2 GM in Sodium Chloride 0.9% 100 ML IVPB SCH (09:10)
[2018-03-25] MEDS: Tamsulosin HCl 0.4 MG CAP PO SCH (09:18)
[2018-03-25] MEDS: Folic Acid 1 MG TAB PO SCH (09:20)
[2018-03-25] MEDS: Carvedilol 3.125 MG TAB PO SCH ×2 (09:20→21:28)
[2018-03-25] MEDS: sulfaSALAzine 500 MG TAB PO SCH ×2 (09:20→21:27)
[2018-03-25] MEDS: Morphine ER 15 MG TAB PO SCH ×2 (09:20→21:28)
[2018-03-25] MEDS: Apixaban 5 MG TAB PO SCH ×2 (09:21→21:27)
[2018-03-25] MEDS: Gabapentin 300 MG CAP PO SCH ×3 (09:21→21:28)
[2018-03-25] MEDS: Torsemide 20 MG TAB PO SCH ×2 (09:21→14:08)
[2018-03-25] MEDS: Potassium Chloride 20 MEQ TAB PO SCH (09:21)
[2018-03-25] MEDS: Floranex Packet PO SCH (09:21)
[2018-03-25] MEDS: Nystatin Powder 15 GM BOT TOP SCH ×2 (09:22→21:31)
[2018-03-25 12:21] LABS: #Basophils 0.1 thou/uL (0.0-0.2); #Eosinphils 0.3 thou/uL (0.0-0.7); #Lymphocytes 2.1 thou/uL (1.20-3.40); #Monocytes 0.6 thou/uL (0.11-0.59); #Neutrophils 1.6 thou/uL (1.40-6.50); %Basophils 1.4 % (0.0-1.0); %Eosinophils 5.9 % (0.0-10.0); %Monocytes 12.7 % (0.0-10.0); Hemoglobin 10.5 g/dL (14.0-18.0); Mean Corpuscular HGB CONC 33.2 g/dL (32.0-36.0); Mean Corpuscular Hemoglobin 31.5 pg (27.0-31.0); Mean Corpuscular Volume 94.8 fL (78.0-98.0); Mean Platelet Volume 10.8 fL (7.4-10.4); Platelet Count 93 thou/uL (130-400); RBC Distribution Width 13.1 % (11.5-14.5); Red Blood Cell (RBC) Count 3.33 mill/uL (4.70-6.10); White Blood Cell (WBC) Count 4.6 thou/uL (4.8-10.8)
[2018-03-25 13:07] LABS: ALT (SGPT) 10 U/L (8-55); AST (SGOT) 29 U/L (5-34); Albumin 2.8 g/dL (3.4-4.8); Alkaline Phosphatase 91 U/L (40-150); Anion Gap 12 mmol/L (10-20); BUN (Urea Nitrogen) 31 mg/dL (8.4-25.7); Bilirubin, Total 0.3 mg/dL (0.2-1.2); Calc. Creatinine Clearance 76 mL/min (70-130); Carbon Dioxide 29 mmol/L (23-31); Chloride 97 mmol/L (98-107); Estimated GFR-MDRD 58; Globulin 3.4 g/dL (2.4-3.5); Glucose 116 mg/dL (83-110); Potassium 4.3 mmol/L (3.5-5.1); Protein, Total 6.2 g/dL (5.8-8.1); Sodium 134 mmol/L (136-145)
[2018-03-25] MEDS: Acetaminophen 325 MG TAB PO PRN (14:08)
[2018-03-25] MEDS: DAPTOmycin 500 MG in Sodium Chloride 0.9% 100 ML IVPB SCH (17:07)
[2018-03-26] MEDS: Gabapentin 300 MG CAP PO SCH ×3 (08:20→20:30)
[2018-03-26] MEDS: Torsemide 20 MG TAB PO SCH ×2 (08:21→14:17)
[2018-03-26] MEDS: Apixaban 5 MG TAB PO SCH ×2 (08:21→20:31)
[2018-03-26] MEDS: Folic Acid 1 MG TAB PO SCH (08:21)
[2018-03-26] MEDS: Carvedilol 3.125 MG TAB PO SCH ×2 (08:21→20:31)
[2018-03-26] MEDS: sulfaSALAzine 500 MG TAB PO SCH ×2 (08:22→20:31)
[2018-03-26] MEDS: Potassium Chloride 20 MEQ TAB PO SCH (08:22)
[2018-03-26] MEDS: Tamsulosin HCl 0.4 MG CAP PO SCH (08:22)
[2018-03-26] MEDS: Morphine ER 15 MG TAB PO SCH ×2 (08:24→20:32)
[2018-03-26] MEDS: Floranex Packet PO SCH (08:26)
[2018-03-26] MEDS: Nystatin Powder 15 GM BOT TOP SCH ×2 (08:27→20:40)
[2018-03-26] MEDS: Calcium Carbonate 500 MG ChewTAB PO PRN (08:35)
[2018-03-26] MEDS: cefTRIAXone\\ROCEPHIN 2 GM in Sodium Chloride 0.9% 100 ML IVPB SCH (10:31)
[2018-03-26] MEDS: Acetaminophen 325 MG TAB PO PRN (14:17)
[2018-03-26] MEDS: DAPTOmycin 500 MG in Sodium Chloride 0.9% 100 ML IVPB SCH (16:39)
[2018-03-26] MEDS: Docusate 100 MG CAP PO SCH (20:31)
[2018-03-27] MEDS: Morphine ER 15 MG TAB PO SCH ×2 (09:01→21:11)
[2018-03-27] MEDS: Potassium Chloride 20 MEQ TAB PO SCH (09:03)
[2018-03-27] MEDS: sulfaSALAzine 500 MG TAB PO SCH ×2 (09:03→21:11)
[2018-03-27] MEDS: Floranex Packet PO SCH (09:03)
[2018-03-27] MEDS: Docusate 100 MG CAP PO SCH ×2 (09:04→21:10)
[2018-03-27] MEDS: Apixaban 5 MG TAB PO SCH ×2 (09:04→21:10)
[2018-03-27] MEDS: Gabapentin 300 MG CAP PO SCH ×3 (09:04→21:10)
[2018-03-27] MEDS: Carvedilol 3.125 MG TAB PO SCH ×2 (09:04→21:11)
[2018-03-27] MEDS: Torsemide 20 MG TAB PO SCH ×2 (09:04→14:31)
[2018-03-27] MEDS: Folic Acid 1 MG TAB PO SCH (09:04)
[2018-03-27] MEDS: Tamsulosin HCl 0.4 MG CAP PO SCH (09:04)
[2018-03-27] MEDS: Nystatin Powder 15 GM BOT TOP SCH ×2 (09:07→21:00)
[2018-03-27] MEDS: cefTRIAXone\\ROCEPHIN 2 GM in Sodium Chloride 0.9% 100 ML IVPB SCH (10:27)
[2018-03-27] MEDS: DAPTOmycin 500 MG in Sodium Chloride 0.9% 100 ML IVPB SCH (17:21)
[2018-03-28] MEDS: Floranex Packet PO SCH (08:23)
[2018-03-28] MEDS: Docusate 100 MG CAP PO SCH ×2 (08:24→20:38)
[2018-03-28] MEDS: Morphine ER 15 MG TAB PO SCH ×2 (08:25→20:38)
[2018-03-28] MEDS: Folic Acid 1 MG TAB PO SCH (08:26)
[2018-03-28] MEDS: Tamsulosin HCl 0.4 MG CAP PO SCH (08:26)
[2018-03-28] MEDS: Potassium Chloride 20 MEQ TAB PO SCH (08:27)
[2018-03-28] MEDS: Gabapentin 300 MG CAP PO SCH ×3 (08:27→20:38)
[2018-03-28] MEDS: Apixaban 5 MG TAB PO SCH ×2 (08:27→20:39)
[2018-03-28] MEDS: sulfaSALAzine 500 MG TAB PO SCH ×2 (08:27→20:38)
[2018-03-28] MEDS: Carvedilol 3.125 MG TAB PO SCH ×2 (08:27→20:38)
[2018-03-28] MEDS: Nystatin Powder 15 GM BOT TOP SCH ×2 (08:28→20:51)
[2018-03-28] MEDS: cefTRIAXone\\ROCEPHIN 2 GM in Sodium Chloride 0.9% 100 ML IVPB SCH (08:32)
[2018-03-28] MEDS: Torsemide 20 MG TAB PO SCH ×2 (08:32→14:16)
[2018-03-28] MEDS: Acetaminophen 325 MG TAB PO PRN (14:16)
[2018-03-28] MEDS: DAPTOmycin 500 MG in Sodium Chloride 0.9% 100 ML IVPB SCH (17:24)
[2018-03-29] MEDS: Morphine ER 15 MG TAB PO SCH ×2 (08:36→20:22)
[2018-03-29] MEDS: sulfaSALAzine 500 MG TAB PO SCH ×2 (08:38→20:24)
[2018-03-29] MEDS: Tamsulosin HCl 0.4 MG CAP PO SCH (08:38)
[2018-03-29] MEDS: Floranex Packet PO SCH (08:38)
[2018-03-29] MEDS: Gabapentin 300 MG CAP PO SCH ×3 (08:38→20:24)
[2018-03-29] MEDS: Carvedilol 3.125 MG TAB PO SCH ×2 (08:38→20:23)
[2018-03-29] MEDS: Docusate 100 MG CAP PO SCH ×2 (08:39→20:23)
[2018-03-29] MEDS: Apixaban 5 MG TAB PO SCH ×2 (08:39→20:23)
[2018-03-29] MEDS: Potassium Chloride 20 MEQ TAB PO SCH (08:39)
[2018-03-29] MEDS: Nystatin Powder 15 GM BOT TOP SCH ×2 (08:39→20:24)
[2018-03-29] MEDS: Torsemide 20 MG TAB PO SCH ×2 (08:39→14:19)
[2018-03-29] MEDS: Folic Acid 1 MG TAB PO SCH (08:39)
[2018-03-29] MEDS: cefTRIAXone\\ROCEPHIN 2 GM in Sodium Chloride 0.9% 100 ML IVPB SCH (08:41)
[2018-03-29] MEDS: Acetaminophen 325 MG TAB PO PRN (14:19)
[2018-03-29] MEDS: DAPTOmycin 500 MG in Sodium Chloride 0.9% 100 ML IVPB SCH (16:47)
[2018-03-30] MEDS: Morphine ER 15 MG TAB PO SCH ×2 (08:44→20:47)
[2018-03-30] MEDS: Apixaban 5 MG TAB PO SCH ×2 (08:48→20:46)
[2018-03-30] MEDS: Docusate 100 MG CAP PO SCH ×2 (08:48→20:46)
[2018-03-30] MEDS: Potassium Chloride 20 MEQ TAB PO SCH (08:49)
[2018-03-30] MEDS: sulfaSALAzine 500 MG TAB PO SCH ×2 (08:49→20:47)
[2018-03-30] MEDS: Tamsulosin HCl 0.4 MG CAP PO SCH (08:50)
[2018-03-30] MEDS: Gabapentin 300 MG CAP PO SCH ×3 (08:50→20:46)
[2018-03-30] MEDS: Carvedilol 3.125 MG TAB PO SCH ×2 (08:50→20:47)
[2018-03-30] MEDS: Folic Acid 1 MG TAB PO SCH (08:51)
[2018-03-30] MEDS: Nystatin Powder 15 GM BOT TOP SCH ×2 (11:02→20:49)
[2018-03-30] MEDS: cefTRIAXone\\ROCEPHIN 2 GM in Sodium Chloride 0.9% 100 ML IVPB SCH (11:06)
[2018-03-30] MEDS: Torsemide 20 MG TAB PO SCH ×2 (13:12→14:38)
[2018-03-30] MEDS: Floranex Packet PO SCH (13:13)
[2018-03-30] MEDS: DAPTOmycin 500 MG in Sodium Chloride 0.9% 100 ML IVPB SCH (17:15)
[2018-03-31] MEDS: Potassium Chloride 20 MEQ TAB PO SCH (09:08)
[2018-03-31] MEDS: sulfaSALAzine 500 MG TAB PO SCH ×2 (09:08→21:44)
[2018-03-31] MEDS: Tamsulosin HCl 0.4 MG CAP PO SCH (09:09)
[2018-03-31] MEDS: Gabapentin 300 MG CAP PO SCH ×3 (09:09→21:46)
[2018-03-31] MEDS: Docusate 100 MG CAP PO SCH ×2 (09:10→21:46)
[2018-03-31] MEDS: Torsemide 20 MG TAB PO SCH ×2 (09:11→15:57)
[2018-03-31] MEDS: Folic Acid 1 MG TAB PO SCH (09:11)
[2018-03-31] MEDS: Carvedilol 3.125 MG TAB PO SCH ×2 (09:12→21:45)
[2018-03-31] MEDS: Morphine ER 15 MG TAB PO SCH ×2 (09:12→21:45)
[2018-03-31] MEDS: Apixaban 5 MG TAB PO SCH ×2 (09:12→21:45)
[2018-03-31] MEDS: cefTRIAXone\\ROCEPHIN 2 GM in Sodium Chloride 0.9% 100 ML IVPB SCH (09:15)
[2018-03-31] MEDS: Nystatin Powder 15 GM BOT TOP SCH ×2 (09:18→21:46)
[2018-03-31] MEDS: Calcium Carbonate 500 MG ChewTAB PO PRN (09:41)
[2018-03-31] MEDS: Floranex Packet PO SCH (11:29)
[2018-03-31] MEDS: Acetaminophen 325 MG TAB PO PRN (16:10)
[2018-03-31] MEDS: DAPTOmycin 500 MG in Sodium Chloride 0.9% 100 ML IVPB SCH (17:16)
[2018-03-31] MEDS: Senokot 8.6 MG TAB PO PRN (21:44)
[2018-04-01 05:35] VITALS: BMI 34.3
[2018-04-01 05:48] LABS: ALT (SGPT) 16 U/L (8-55); AST (SGOT) 28 U/L (5-34); Albumin 2.7 g/dL (3.4-4.8); Alkaline Phosphatase 90 U/L (40-150); Anion Gap 11 mmol/L (10-20); BUN (Urea Nitrogen) 28 mg/dL (8.4-25.7); Bilirubin, Total 0.4 mg/dL (0.2-1.2); Calc. Creatinine Clearance 79 mL/min (70-130); Calcium 8.8 mg/dL (7.8-10.44); Carbon Dioxide 29 mmol/L (23-31); Chloride 98 mmol/L (98-107); Estimated GFR-MDRD 59; Globulin 3.1 g/dL (2.4-3.5); Glucose 94 mg/dL (83-110); Potassium 4.2 mmol/L (3.5-5.1); Protein, Total 5.8 g/dL (5.8-8.1); Sodium 134 mmol/L (136-145)
[2018-04-01 05:57] LABS: Eosinophils 5 % (0-10); Hemoglobin 9.6 g/dL (14.0-18.0); Lymphocytes 49 % (21-51); MDiff Complete? YES; Mean Corpuscular HGB CONC 32.7 g/dL (32.0-36.0); Mean Corpuscular Hemoglobin 31.1 pg (27.0-31.0); Mean Corpuscular Volume 95.1 fL (78.0-98.0); Mean Platelet Volume 8.8 fL (7.4-10.4); Monocytes 6 % (0-10); Neutrophil 35 % (42-75); PLT Morphology Comment Appears Decreased; Platelet Count 85 thou/uL (130-400); RBC Distribution Width 12.5 % (11.5-14.5); RBC Morphology Normal; Reactive Lymphocytes 3 % (0-10); Red Blood Cell (RBC) Count 3.08 mill/uL (4.70-6.10)
[2018-04-01] MEDS: Potassium Chloride 20 MEQ TAB PO SCH (08:08)
[2018-04-01] MEDS: Gabapentin 300 MG CAP PO SCH ×3 (08:59→21:59)
[2018-04-01] MEDS: Folic Acid 1 MG TAB PO SCH (08:59)
[2018-04-01] MEDS: Tamsulosin HCl 0.4 MG CAP PO SCH (08:59)
[2018-04-01] MEDS: Apixaban 5 MG TAB PO SCH ×2 (08:59→21:59)
[2018-04-01] MEDS: Carvedilol 3.125 MG TAB PO SCH ×2 (08:59→21:59)
[2018-04-01] MEDS: Morphine ER 15 MG TAB PO SCH ×2 (09:00→21:59)
[2018-04-01] MEDS: Docusate 100 MG CAP PO SCH ×2 (09:00→21:59)
[2018-04-01] MEDS: sulfaSALAzine 500 MG TAB PO SCH ×2 (09:00→21:58)
[2018-04-01] MEDS: Floranex Packet PO SCH (09:00)
[2018-04-01] MEDS: Torsemide 20 MG TAB PO SCH ×2 (09:57→14:13)
[2018-04-01] MEDS: Nystatin Powder 15 GM BOT TOP SCH ×2 (09:58→22:01)
[2018-04-01] MEDS: Acetaminophen 325 MG TAB PO PRN (10:04)
[2018-04-01] MEDS: cefTRIAXone\\ROCEPHIN 2 GM in Sodium Chloride 0.9% 100 ML IVPB SCH (10:31)
[2018-04-01] MEDS: DAPTOmycin 500 MG in Sodium Chloride 0.9% 100 ML IVPB SCH (17:05)
[2018-04-02 06:37] VITALS: BP 122/63; TEMP 98.2
[2018-04-02] MEDS: Floranex Packet PO SCH (09:16)
[2018-04-02] MEDS: Folic Acid 1 MG TAB PO SCH (09:16)
[2018-04-02] MEDS: Apixaban 5 MG TAB PO SCH (09:16)
[2018-04-02] MEDS: Docusate 100 MG CAP PO SCH (09:16)
[2018-04-02] MEDS: Carvedilol 3.125 MG TAB PO SCH (09:16)
[2018-04-02] MEDS: Torsemide 20 MG TAB PO SCH ×2 (09:17→16:01)
[2018-04-02] MEDS: Tamsulosin HCl 0.4 MG CAP PO SCH (09:17)
[2018-04-02] MEDS: Morphine ER 15 MG TAB PO SCH (09:17)
[2018-04-02] MEDS: Gabapentin 300 MG CAP PO SCH ×2 (09:17→16:01)
[2018-04-02] MEDS: sulfaSALAzine 500 MG TAB PO SCH (09:19)
[2018-04-02] MEDS: Potassium Chloride 20 MEQ TAB PO SCH (09:19)
[2018-04-02] MEDS: Nystatin Powder 15 GM BOT TOP SCH (09:21)
[2018-04-02] MEDS: cefTRIAXone\\ROCEPHIN 2 GM in Sodium Chloride 0.9% 100 ML IVPB SCH (09:22)
[2018-04-02] MEDS: DAPTOmycin 500 MG in Sodium Chloride 0.9% 100 ML IVPB SCH (16:01)
== END 2018-04-02 17:29 | disposition home health service (06) | DRG 289 ==
LOC: BURMED 15:05
PROVIDERS: ADMIT Family Medicine; ATTEND Family Medicine
DX: I33.0 Acute and subacute infective endocarditis (principal); I50.32 Chronic diastolic (congestive) heart failure; R78.81 Bacteremia; G89.29 Other chronic pain; Z87.442 Personal history of urinary calculi; I25.10 Atherosclerotic heart disease of native coronary artery without angina pectoris; I25.2 Old myocardial infarction; I11.0 Hypertensive heart disease with heart failure; E78.5 Hyperlipidemia, unspecified; Z66 Do not resuscitate; D70.9 Neutropenia, unspecified; G47.33 Obstructive sleep apnea (adult) (pediatric); D53.9 Nutritional anemia, unspecified; D69.6 Thrombocytopenia, unspecified; I48.91 Unspecified atrial fibrillation
CPT/HCPCS: 36415; 80048; 80053; 82565; 83880; 85007; 85014; 85018; 85025; 85027; 85049; 86140; 90471; 90662; A4216; G0008; G8978-GP-CI; G8978-GP-CJ; G8979-GP-CH; J0171; J0290; J0696; J0878; J1642; J1940; J7050